=== PATIENT | female | born 1990 | race Asian ===

== ENCOUNTER 2016-06-12 22:04 | Emergency (ER) | payer OTHER ==
[~2016-06-12] VITALS: Ht 188 cm; Wt 131.1 kg
[2016-06-12 23:14] LABS: PLATELET COUNT 328 K/uL (152-353)
[2016-06-12 23:28] LABS: POTASSIUM 3.7 mmol/L (3.6-5.2); SODIUM 136 mmol/L (136-145)
[2016-06-13 00:30] VITALS: BP 147/84; TEMP 98.1
== END 2016-06-13 00:33 | disposition home or self-care (01) ==
LOC: ED 22:04
DX: J40 Bronchitis, not specified as acute or chronic (principal); J02.0 Streptococcal pharyngitis
CPT/HCPCS: 36415; 80053; 85027; 87804; 87880; 96372; 99283; J0696

== ENCOUNTER 2017-01-30 23:37 | Emergency (ER) | payer OTHER ==
[~2017-01-30] VITALS: Ht 188 cm; Wt 129.3 kg
[2017-01-30 23:48] VITALS: TEMP 98.4
[2017-01-31 00:15] VITALS: BP 134/92
== END 2017-01-31 00:21 | disposition home or self-care (01) ==
LOC: ED 23:37
DX: K64.4 Residual hemorrhoidal skin tags (principal); K64.8 Other hemorrhoids
CPT/HCPCS: 99282

== ENCOUNTER 2017-11-24 01:31 | Emergency (ER) | payer BC ==
[~2017-11-24] VITALS: Ht 188 cm; Wt 143.3 kg
[2017-11-24 01:44] VITALS: BP 154/92; TEMP 98.3
== END 2017-11-24 02:31 | disposition home or self-care (01) ==
LOC: ED 01:31
DX: K59.00 Constipation, unspecified (principal); K64.4 Residual hemorrhoidal skin tags
CPT/HCPCS: 74022; 99283

== ENCOUNTER 2018-12-19 12:52 | Outpatient (CLI) | payer BC ==
[2018-12-19 13:40] LABS: PLATELET COUNT 316 K/uL (152-353)
[2018-12-19 13:51] LABS: POTASSIUM 3.9 mmol/L (3.6-5.2)
== END 2018-12-19 20:32 | disposition home or self-care (01) ==
LOC: LABW 12:52
PROVIDERS: Nurse Practitioner Family
DX: R10.11 Right upper quadrant pain (principal)
CPT/HCPCS: 36415; 80053; 81000; 82150; 83690; 85027

== ENCOUNTER 2018-12-20 09:11 | Outpatient (CLI) | payer BC | END 2018-12-20 21:00 | disposition home or self-care (01) | LOC: US 09:11 | DX: R10.11 Right upper quadrant pain (principal) ==

== ENCOUNTER 2020-07-21 11:13 | Outpatient (CLI) | payer BC | END 2020-07-21 22:01 | disposition home or self-care (01) | LOC: MAMMO 11:13 | PROVIDERS: ATTEND Obstetrics & Gynecology | DX: Z12.31 Encounter for screening mammogram for malignant neoplasm of breast (principal) ==

== ENCOUNTER 2021-08-12 13:56 | Emergency (ER) | payer BC ==
[~2021-08-12] VITALS: Ht 188 cm; Wt 126.6 kg
[2021-08-12 14:35] VITALS: BP 137/88; TEMP 98.1
== END 2021-08-12 14:35 | disposition home or self-care (01) ==
LOC: ED 13:56
DX: K64.4 Residual hemorrhoidal skin tags (principal)
CPT/HCPCS: 96372; 99283; J1885

== ENCOUNTER 2022-06-24 00:49 | Emergency (ER) | payer BC ==
[~2022-06-24] VITALS: Ht 188 cm; Wt 134.7 kg
[2022-06-24 01:35] VITALS: BP 142/86; TEMP 97.3
== END 2022-06-24 01:35 | disposition home or self-care (01) ==
LOC: ED 00:49
DX: L02.216 Cutaneous abscess of umbilicus (principal)
CPT/HCPCS: 99281

== ENCOUNTER 2022-09-16 21:39 | Emergency (ER) | payer BC ==
[~2022-09-16] VITALS: Ht 188 cm; Wt 131.5 kg
[2022-09-16 22:04] VITALS: BP 149/108; TEMP 99
== END 2022-09-17 02:40 | disposition home or self-care (01) ==
LOC: ED 21:39
DX: M25.532 Pain in left wrist (principal); M25.512 Pain in left shoulder; M54.9 Dorsalgia, unspecified; M79.10 Myalgia, unspecified site; V89.2XXA Person injured in unspecified motor-vehicle accident, traffic, initial encounter; F17.210 Nicotine dependence, cigarettes, uncomplicated
CPT/HCPCS: 81025; 96372; 99283; J1885